=== PATIENT | female | born 1990 | race Caucasian/White ===

== ENCOUNTER 2023-01-06 11:28 | Emergency (ER) | payer OTHER, SELFPAY ==
[2023-01-06 11:38] VITALS: BP 145/93; PULSE 86; RESP 19; TEMP 36.6; O2SAT 98; BMI 39.8
--- NOTE | 2023-01-06 11:39 | ED.PSYCH ---
HPI - Psych General Chief Complaint: Psychiatric Symptoms <DWIGHT Garcia - Last Filed: 01/06/23 11:44> Stated Complaint: crisis <DWIGHT Garcia - Last Filed: 01/06/23 11:44> Time Seen by Provider: 01/06/23 12:42 <DWIGHT Garcia - Last Filed: 01/06/23 11:44> Source: patient <DWIGHT Amor - Last Filed: 01/06/23 18:24> Mode of arrival: ambulatory <DWIGHT Amor - Last Filed: 01/06/23 18:24> Limitations: no limitations <DWIGHT Amor Last Filed: 01/06/23 18:24> History of Present Illness HPI Narrative: 32yoF with a PMHx of anxiety, depression, OCD and OCPD who self cuts and has had suicidal attempts in the past who is presenting to the ER with complaints of increased paranoia and thoughts over the past 3 weeks. Reports that she normally can be talked out of what she believes although this has not been happening lately despite taking her medications as prescribed. She reports that she did leave a no in the past to attempt SI although does not feel like she wants to harm herself today. Although over the weekend she did drink some alcohol and she mixer Ativan with the alcohol which she knows she is not supposed to she reports. She admits the self injury cuts to forearms as well over the weekend she spoke to her PCP who is the PA and they were concerned and they told her that she should come here for further evaluation treatment. Patient denies any SI or plan at this time, HI, auditory visualization and she does not want to self injure herself anymore. Reports that she lives at home alone. Denies any drug usage. Reports that she does not drink daily. She denies any fevers, chills, nausea or vomiting, chest pain or shortness of breath, abdominal pain, diarrhea or any other symptoms complaints or concerns at this time. <DWIGHT Amor Last Filed: 01/06/23 18:24> MD complaint: feels depressed, anxiety and other (Increased OCD/OCPD symptoms) <DWIGHT Amor Last Filed: 01/06/23 18:24> Onset (ago): week(s) (3) <DWIGHT Amor - Last Filed: 01/06/23 18:24> Duration: getting worse <DWIGHT Amor - Last Filed: 01/06/23 18:24> History of same: Yes <DWIGHT Amor - Last Filed: 01/06/23 18:24> Relieving factors: none <DWIGHT Amor - Last Filed: 01/06/23 18:24> Exacerbating factors: none <DWIGHT Amor - Last Filed: 01/06/23 18:24> Context: recent alcohol abuse <DWIGHT Amor - Last Filed: 01/06/23 18:24> Associated psychiatric symptoms: depression and racing thoughts <DWIGHT Amor - Last Filed: 01/06/23 18:24> Associated symptoms: denies other symptoms <DWIGHT Amor - Last Filed: 01/06/23 18:24> Treatments prior to arrival: none <DWIGHT Amor - Last Filed: 01/06/23 18:24> If self harm: self-inflicted trauma <DWIGHT Amor - Last Filed: 01/06/23 18:24> Related Data Home Medications: Home Medications Medication Instructions Recorded Confirmed fluoxetine 20 mg capsule 1 cap PO DAILY 01/06/23 01/06/23 hydroxyzine HCl 25 mg tablet 1 tab PO DAILY PRN anxiety 01/06/23 01/06/23 levonorgestrel-ethinyl estradiol 1 tab PO DAILY 01/06/23 01/06/23 0.1 mg-20 mcg tablet (Vienva) lorazepam 0.5 mg tablet 1 tab PO DAILY PRN anxiety 01/06/23 01/06/23 olanzapine 2.5 mg tablet 1 tab PO BID 01/06/23 01/06/23 <DWIGHT Garcia - Last Filed: 01/06/23 11:44> Allergies/Adverse Reactions: Allergies Allergy/AdvReac Type Severity Reaction Status Date / Time azithromycin [From ZITHROMAX] Allergy Intermediate HIVES Unverified 07/06/20 19:27 sulfamethoxazole Allergy Intermediate HIVES Unverified 07/06/20 19:27 [From BACTRIM] trimethoprim [From BACTRIM] Allergy Intermediate HIVES Unverified 07/06/20 19:27 FRUIT,FRESH Allergy Intermediate MOUTH Uncoded 07/06/20 19:27 ITCHING bactrum Allergy Unknown Uncoded 02/06/18 00:00 <DWIGHT Garcia - Last Filed: 01/06/23 11:44> Review of Systems Review of Systems: Constitutional : No Fever, No Chills ENT/Mouth : No Ear Pain, No Nasal Congestion, No sore throat Eyes: No Eye Pain, No Swelling, No Redness Cardiovascular : No Chest Pain, No SOB Respiratory : No Cough, No Sputum, No Dyspnea Gastrointestinal : No ingestions, No Nausea, No Vomiting, No Diarrhea, No Hematochezia, No Melena Genitourinary : No Dysuria, No Urinary Frequency, No Hematuria Musculoskeletal : No Myalgias Skin : No Skin Lesions, No rash Neuro : No Weakness, No Numbness, No Paresthesias, No Dizziness, No Headache Psych : + Anxiety, + Depression, No SI, + No thoughts of self injury, No HI, No AVH, Heme/Lymph: No Lymphadenopathy Endocrine : No Polyuria, No Polydipsia <DWIGHT Amor - Last Filed: 01/06/23 18:24> Yes all other systems are reviewed and are negative <DWIGHT Amor - Last Filed: 01/06/23 18:24> FOR[facility]LY [facility] Past Medical History Attestation statement: The following information was validated with the patient. <DWIGHT Amor - Last Filed: 01/06/23 18:24> Source: old records reviewed and nursing notes reviewed <DWIGHT Amor - Last Filed: 01/06/23 18:24> Social History Social History: Social History Advance Directives: No Advance Directives Information Provided: Yes Healthcare Proxy: No Guardian: No <DWIGHT Garcia - Last Filed: 01/06/23 11:44> Physical Exam Vital Signs: Vital Signs: Last Vital Signs Temp 97.9 F 01/07/23 10:40 Pulse 74 01/07/23 10:40 Resp 16 01/07/23 10:40 BP 124/74 01/07/23 10:40 Pulse Ox 96 01/07/23 10:40 O2 Del Method 01/07/23 10:40 BMI result Body Mass Index 39.8 <DWIGHT Garcia - Last Filed: 01/06/23 11:44> Vital Signs: Last Vital Signs Temp 97.9 F 01/07/23 10:40 Pulse 74 01/07/23 10:40 Resp 16 01/07/23 10:40 BP 124/74 01/07/23 10:40 Pulse Ox 96 01/07/23 10:40 O2 Del Method 01/07/23 10:40 BMI result Body Mass Index 39.8 vital signs have been reviewed as normal and appeared to be correct. Blood pressure 145/93 Heart rate normal. Respiration rate normal. Temperature normal. Oxygen saturation normal. <DWIGHT Amor - Last Filed: 01/06/23 18:24> Vital Signs: Last Vital Signs Temp 97.9 F 01/07/23 10:40 Pulse 74 01/07/23 10:40 Resp 16 01/07/23 10:40 BP 124/74 01/07/23 10:40 Pulse Ox 96 01/07/23 10:40 O2 Del Method 01/07/23 10:40 BMI result Body Mass Index 39.8 <Edward Singh MD - Last Filed: 01/07/23 11:13> Appearance: Alert. Oriented X3. No acute distress. Head: Normal external exam. Normocephalic. Atraumatic. No Diaz signs noted. No raccoon eyes noted Eyes: PERRLA. EOMI. Conjunctiva and sclera normal. Eyelids normal. ENT: EAC normal. TM's Normal. Pharynx normal. Uvula midline. Moist mucous membranes. No trismus noted. No drooling noted. No muffled voice noted. Neck: Normal inspection. Neck supple. FROM. No adenopathy. Thyroid Normal. No meningeal signs. No neck mass noted. CVS: Normal heart rate and rhythm. Heart sound normal. No murmurs noted. Pulses normal throughout. Respiratory: No respiratory distress. Painless inspiration. Breath sounds normal. No wheezes/rales/rhonchi noted. Chest nontender. No accessory muscle usage noted or decreased air movement noted. Abdomen: Soft and nontender. Bowel sounds normal in all 4 quadrants. No distention noted. No organomegaly noted. No visible injury noted. Back: No CVA tenderness. Full range of motion noted. Skin: Skin warm and dry. Normal skin color. Normal skin turgor. Patient noted to have superficial self-injury torres to left forearm no signs of infection. No additional rashes/lesions/lacerations noted. Extremities: No lower extremity edema. Extremities exhibit normal range of motion. Extremities nontender. Neuro: Oriented X 3. No motor deficit. No sensory deficit. Reflexes normal. CN's II-XII intact bilaterally? Psych: Appearance grossly normal, well-kept, mental status normal, speech and movement normal, speech clear, patient appears very sad and anxious along with depressed. Is cooperative. Normal thought process. Normal thought content. Normal good insight. Judgment good. <DWIGHT Amor - Last Filed: 01/06/23 18:24> Course Course Course Narrative: This is an RME: Additional HPI, ROS, PE not included below will be deferred to primary provider. 32 year old female presents with complaints of OCPD, and suicidal ideations w/ plan to cut ( last cute two days ago L forearm). Presents w/ deteriorating mental health, she states she was told to come in by her is puncture, she used to have OCD in the told her that she has OCPD. Vague SI. No HI. Denies visual, auditory and tactile hallucinations. Denies drugs, alcohol tobacco. Will go to the behavioral pod Plan- med clearance. <DWIGHT Garcia - Last Filed: 01/06/23 11:44> Reevaluation(s) Reevaluation #1: This patient presents with symptoms consistent with an underlying psychiatric disorder, most likely anxiety/depression/OCD/OCPD exacerbation. Presentation not consistent with acute organic causes to include delirium, dementia or drug induced disorders (acute ingestions or withdrawal; no evidence of toxidrome). Given the H&P, I suspect this patient may be suicidal although NOT homicidal/gravely disabled. She may or may not require psychiatric care. Will obtain labs, EKG, COVID swab, UA, drugs of abuse screen and re-evaluate. <DWIGHT Amor - Last Filed: 01/06/23 18:24> Time: 13:15 <DWIGHT Amor - Last Filed: 01/06/23 18:24> Reevaluation #2: Labs reviewed patient's carbon dioxide 20. Otherwise all other labs are within normal limits. UA revealed moderate amount of leukocytes although negative nitrates. Patient reports she was treated for UTI few weeks ago with Macrobid she is not having any symptoms. Although will start on Cefotan for possible UTI. Otherwise patient negative for all drugs. ETOH level negative. Negative for acetaminophen and salicylates. Negative for COVID. Therefore at this time patient medically cleared and placed in Physician observation because the patient needs more time to be evaluated by care team for possible inpatient psychiatric rehabilitation versus outpatient. Will continue to monitor. <DWIGHT Amor - Last Filed: 01/06/23 18:24> Time: 13:59 <DWIGHT Amor - Last Filed: 01/06/23 18:24> Reevaluation #3: Patient to go to respite will dc home <Edward Singh MD - Last Filed: 01/07/23 11:13> Time: 11:12 <Edward Singh MD - Last Filed: 01/07/23 11:13> Medications Administered Generic Name Dose Route Start Last Admin Trade Name Freq PRN Reason Stop Dose Admin Cefuroxime Axetil 250 mg 01/06/23 14:15 01/07/23 09:01 Cefuroxime Axetil 250 Mg Tablet PO 01/13/23 14:14 250 mg BID KENYON Administration Fluoxetine HCl 20 mg 01/07/23 09:00 01/07/23 09:01 Fluoxetine Hcl 20 Mg Capsule PO 20 mg DAILY KENYON Administration Olanzapine 2.5 mg 01/06/23 21:00 01/07/23 09:01 Olanzapine 2.5 Mg Tablet PO 2.5 mg BID KENYON Administration <DWIGHT Garcia - Last Filed: 01/06/23 11:44> Medications Administered Generic Name Dose Route Start Last Admin Trade Name Freq PRN Reason Stop Dose Admin Cefuroxime Axetil 250 mg 01/06/23 14:15 01/07/23 09:01 Cefuroxime Axetil 250 Mg Tablet PO 01/13/23 14:14 250 mg BID KENYON Administration Fluoxetine HCl 20 mg 01/07/23 09:00 01/07/23 09:01 Fluoxetine Hcl 20 Mg Capsule PO 20 mg DAILY KENYON Administration Olanzapine 2.5 mg 01/06/23 21:00 01/07/23 09:01 Olanzapine 2.5 Mg Tablet PO 2.5 mg BID KENYON Administration <DWIGHT Amor - Last Filed: 01/06/23 18:24> Medications Administered Generic Name Dose Route Start Last Admin Trade Name Patrick PRN Reason Stop Dose Admin Cefuroxime Axetil 250 mg 01/06/23 14:15 01/07/23 09:01 Cefuroxime Axetil 250 Mg Tablet PO 01/13/23 14:14 250 mg BID KENYON Administration Fluoxetine HCl 20 mg 01/07/23 09:00 01/07/23 09:01 Fluoxetine Hcl 20 Mg Capsule PO 20 mg DAILY KENYON Administration Olanzapine 2.5 mg 01/06/23 21:00 01/07/23 09:01 Olanzapine 2.5 Mg Tablet PO 2.5 mg BID KENYON Administration <Edward Singh MD - Last Filed: 01/07/23 11:13> Medical Decision Making Lab Data MDM Lab Attestation statement: I reviewed the patient's lab results. <DWIGHT Amor - Last Filed: 01/06/23 18:24> Result Diagrams: 01/06/23 12:08 01/06/23 12:08 <DWIGHT Garcia - Last Filed: 01/06/23 11:44> Labs: Lab Results 01/06/23 01/06/23 01/06/23 Range/Units 12:08 12:08 12:08 WBC 8.8 (4.8-10.8) X10*3/uL RBC 4.76 (4.20-5.50) X10*6/uL Hgb 13.1 (12.0-16.0) g/dl Hct 40.2 (37.0-47.0) % MCV 84.5 (80.0-98.0) fL MCH 27.5 (27.0-33.0) pg MCHC 32.6 (31.0-35.0) g/dl RDW 13.1 (11.0-16.0) % Plt Count 337 (160-400) X10*3/uL MPV 9.3 L (9.4-12.3) fL Immature Gran % (Auto) 0.5 H (0.0-0.4) % Neut % (Auto) 56.4 (45-73) % Lymph % (Auto) 36.3 (20-40) % [place] % (Auto) 5.2 (2-11) % Eos % (Auto) 1.3 (0-4) % Baso % (Auto) 0.3 (0-2) % Lymph # (Auto) 3.2 (1.2-4.9) X10*3/uL [place] # (Auto) 0.5 (0.1-1.2) X10*3/uL Eos # (Auto) 0.1 (0.0-0.4) X10*3/uL Baso # (Auto) 0.0 (0.0-0.2) X10*3/uL Abs Immat Gran (auto) 0.04 H (0.00-0.03) X10*3/uL Absolute Neuts (auto) 5.0 (2.0-8.3) x10*3/uL Absolute Nucleated RBC 0.000 (0.0-0.012) X10*3/uL Nucleated RBC % (auto) 0.0 (0.0-0.2) /100WBC Sodium 140 (135-145) mmol/L Potassium 4.2 (3.3-5.1) mmol/L Chloride 108 (96-108) mmol/L Carbon Dioxide 20 L (22-29) mmol/L Anion Gap 16 (12-20) BUN 11 (9-16) mg/dL Creatinine 0.79 (0.5-1.4) mg/dL Estim Creat Clear Calc 116.5 Estimated GFR > 60 Random Glucose 99 (60-115) mg/dL Calcium 9.3 (8.4-10.2) mg/dL Magnesium 2.0 (1.6-2.6) mg/dL Total Bilirubin 0.5 (0.0-1.0) mg/dL AST 16 (5-31) U/L ALT 20 (0-31) U/L Alkaline Phosphatase 81 (39-117) U/L Total Protein 6.7 (6.5-8.0) g/dL Albumin 4.3 (3.5-5.0) g/dL Urine Color Urine Appearance Urine pH (5.0-9.0) Ur Specific [place] (1.005-1.025) Urine Protein (Neg-Trace) mg/dL Urine Glucose (UA) (Negative) mg/dL Urine Ketones (Negative) mg/dL Urine Blood (Negative) Urine Nitrite (Negative) Ur Leukocyte Esterase (Negative) Urine RBC (0-2) /HPF Urine WBC (0-5) /HPF Ur Squamous Epith Cells (0-2) /HPF Urine Bacteria (None Seen) Hyaline Casts (0-2) /LPF Salicylates < 5.0 L (15-30) mg/dL Urine Opiates Screen (Not Detect) Urine Fentanyl Screen (Not Detect) Acetaminophen < 17 (<30) mcg/mL Ur Barbiturates Screen (Not Detect) Ur Phencyclidine Scrn (Not Detect) Ur Amphetamines Screen (Not Detect) U Benzodiazepines Scrn (Not Detect) Urine Cocaine Screen (Not Detect) U Marijuana (THC) Screen (Not Detect) Ethyl Alcohol < 10 mg/dL COVID-19 ([facility]) Negative (Negative) COVID-19 Clin Com See Note 01/06/23 01/06/23 Range/Units 12:08 12:08 WBC (4.8-10.8) X10*3/uL RBC (4.20-5.50) X10*6/uL Hgb (12.0-16.0) g/dl Hct (37.0-47.0) % MCV (80.0-98.0) fL MCH (27.0-33.0) pg MCHC (31.0-35.0) g/dl RDW (11.0-16.0) % Plt Count (160-400) X10*3/uL MPV (9.4-12.3) fL Immature Gran % (Auto) (0.0-0.4) % Neut % (Auto) (45-73) % Lymph % (Auto) (20-40) % [place] % (Auto) (2-11) % Eos % (Auto) (0-4) % Baso % (Auto) (0-2) % Lymph # (Auto) (1.2-4.9) X10*3/uL [place] # (Auto) (0.1-1.2) X10*3/uL Eos # (Auto) (0.0-0.4) X10*3/uL Baso # (Auto) (0.0-0.2) X10*3/uL Abs Immat Gran (auto) (0.00-0.03) X10*3/uL Absolute Neuts (auto) (2.0-8.3) x10*3/uL Absolute Nucleated RBC (0.0-0.012) X10*3/uL Nucleated RBC % (auto) (0.0-0.2) /100WBC Sodium (135-145) mmol/L Potassium (3.3-5.1) mmol/L Chloride (96-108) mmol/L Carbon Dioxide (22-29) mmol/L Anion Gap (12-20) BUN (9-16) mg/dL Creatinine (0.5-1.4) mg/dL Estim Creat Clear Calc Estimated GFR Random Glucose (60-115) mg/dL Calcium (8.4-10.2) mg/dL Magnesium (1.6-2.6) mg/dL Total Bilirubin (0.0-1.0) mg/dL AST (5-31) U/L ALT (0-31) U/L Alkaline Phosphatase (39-117) U/L Total Protein (6.5-8.0) g/dL Albumin (3.5-5.0) g/dL Urine Color Yellow Urine Appearance Cloudy Urine pH 6.0 (5.0-9.0) Ur Specific [place] 1.025 (1.005-1.025) Urine Protein Negative (Neg-Trace) mg/dL Urine Glucose (UA) Negative (Negative) mg/dL Urine Ketones Negative (Negative) mg/dL Urine Blood Negative (Negative) Urine Nitrite Negative (Negative) Ur Leukocyte Esterase Moderate (2+) H (Negative) Urine RBC 0-2 (0-2) /HPF Urine WBC 21-50 H (0-5) /HPF Ur Squamous Epith Cells 11-20 (0-2) /HPF Urine Bacteria 2+ (None Seen) Hyaline Casts 0-2 (0-2) /LPF Salicylates (15-30) mg/dL Urine Opiates Screen Not Detected (Not Detect) Urine Fentanyl Screen Not Detected (Not Detect) Acetaminophen (<30) mcg/mL Ur Barbiturates Screen Not Detected (Not Detect) Ur Phencyclidine Scrn Not Detected (Not Detect) Ur Amphetamines Screen Not Detected (Not Detect) U Benzodiazepines Scrn Not Detected (Not Detect) Urine Cocaine Screen Not Detected (Not Detect) U Marijuana (THC) Screen Not Detected (Not Detect) Ethyl Alcohol mg/dL COVID-19 ([facility]) (Negative) COVID-19 Clin Com <DWIGHT Garcia - Last Filed: 01/06/23 11:44> Lab Results 01/06/23 01/06/23 01/06/23 Range/Units 12:08 12:08 12:08 WBC 8.8 (4.8-10.8) X10*3/uL RBC 4.76 (4.20-5.50) X10*6/uL Hgb 13.1 (12.0-16.0) g/dl Hct 40.2 (37.0-47.0) % MCV 84.5 (80.0-98.0) fL MCH 27.5 (27.0-33.0) pg MCHC 32.6 (31.0-35.0) g/dl RDW 13.1 (11.0-16.0) % Plt Count 337 (160-400) X10*3/uL MPV 9.3 L (9.4-12.3) fL Immature Gran % (Auto) 0.5 H (0.0-0.4) % Neut % (Auto) 56.4 (45-73) % Lymph % (Auto) 36.3 (20-40) % [place] % (Auto) 5.2 (2-11) % Eos % (Auto) 1.3 (0-4) % Baso % (Auto) 0.3 (0-2) % Lymph # (Auto) 3.2 (1.2-4.9) X10*3/uL [place] # (Auto) 0.5 (0.1-1.2) X10*3/uL Eos # (Auto) 0.1 (0.0-0.4) X10*3/uL Baso # (Auto) 0.0 (0.0-0.2) X10*3/uL Abs Immat Gran (auto) 0.04 H (0.00-0.03) X10*3/uL Absolute Neuts (auto) 5.0 (2.0-8.3) x10*3/uL Absolute Nucleated RBC 0.000 (0.0-0.012) X10*3/uL Nucleated RBC % (auto) 0.0 (0.0-0.2) /100WBC Sodium 140 (135-145) mmol/L Potassium 4.2 (3.3-5.1) mmol/L Chloride 108 (96-108) mmol/L Carbon Dioxide 20 L (22-29) mmol/L Anion Gap 16 (12-20) BUN 11 (9-16) mg/dL Creatinine 0.79 (0.5-1.4) mg/dL Estim Creat Clear Calc 116.5 Estimated GFR > 60 Random Glucose 99 (60-115) mg/dL Calcium 9.3 (8.4-10.2) mg/dL Magnesium 2.0 (1.6-2.6) mg/dL Total Bilirubin 0.5 (0.0-1.0) mg/dL AST 16 (5-31) U/L ALT 20 (0-31) U/L Alkaline Phosphatase 81 (39-117) U/L Total Protein 6.7 (6.5-8.0) g/dL Albumin 4.3 (3.5-5.0) g/dL Urine Color Urine Appearance Urine pH (5.0-9.0) Ur Specific [place] (1.005-1.025) Urine Protein (Neg-Trace) mg/dL Urine Glucose (UA) (Negative) mg/dL Urine Ketones (Negative) mg/dL Urine Blood (Negative) Urine Nitrite (Negative) Ur Leukocyte Esterase (Negative) Urine RBC (0-2) /HPF Urine WBC (0-5) /HPF Ur Squamous Epith Cells (0-2) /HPF Urine Bacteria (None Seen) Hyaline Casts (0-2) /LPF Salicylates < 5.0 L (15-30) mg/dL Urine Opiates Screen (Not Detect) Urine Fentanyl Screen (Not Detect) Acetaminophen < 17 (<30) mcg/mL Ur Barbiturates Screen (Not Detect) Ur Phencyclidine Scrn (Not Detect) Ur Amphetamines Screen (Not Detect) U Benzodiazepines Scrn (Not Detect) Urine Cocaine Screen (Not Detect) U Marijuana (THC) Screen (Not Detect) Ethyl Alcohol < 10 mg/dL COVID-19 ([facility]) Negative (Negative) COVID-19 Clin Com See Note 01/06/23 01/06/23 Range/Units 12:08 12:08 WBC (4.8-10.8) X10*3/uL RBC (4.20-5.50) X10*6/uL Hgb (12.0-16.0) g/dl Hct (37.0-47.0) % MCV (80.0-98.0) fL MCH (27.0-33.0) pg MCHC (31.0-35.0) g/dl RDW (11.0-16.0) % Plt Count (160-400) X10*3/uL MPV (9.4-12.3) fL Immature Gran % (Auto) (0.0-0.4) % Neut % (Auto) (45-73) % Lymph % (Auto) (20-40) % [place] % (Auto) (2-11) % Eos % (Auto) (0-4) % Baso % (Auto) (0-2) % Lymph # (Auto) (1.2-4.9) X10*3/uL [place] # (Auto) (0.1-1.2) X10*3/uL Eos # (Auto) (0.0-0.4) X10*3/uL Baso # (Auto) (0.0-0.2) X10*3/uL Abs Immat Gran (auto) (0.00-0.03) X10*3/uL Absolute Neuts (auto) (2.0-8.3) x10*3/uL Absolute Nucleated RBC (0.0-0.012) X10*3/uL Nucleated RBC % (auto) (0.0-0.2) /100WBC Sodium (135-145) mmol/L Potassium (3.3-5.1) mmol/L Chloride (96-108) mmol/L Carbon Dioxide (22-29) mmol/L Anion Gap (12-20) BUN (9-16) mg/dL Creatinine (0.5-1.4) mg/dL Estim Creat Clear Calc Estimated GFR Random Glucose (60-115) mg/dL Calcium (8.4-10.2) mg/dL Magnesium (1.6-2.6) mg/dL Total Bilirubin (0.0-1.0) mg/dL AST (5-31) U/L ALT (0-31) U/L Alkaline Phosphatase (39-117) U/L Total Protein (6.5-8.0) g/dL Albumin (3.5-5.0) g/dL Urine Color Yellow Urine Appearance Cloudy Urine pH 6.0 (5.0-9.0) Ur Specific [place] 1.025 (1.005-1.025) Urine Protein Negative (Neg-Trace) mg/dL Urine Glucose (UA) Negative (Negative) mg/dL Urine Ketones Negative (Negative) mg/dL Urine Blood Negative (Negative) Urine Nitrite Negative (Negative) Ur Leukocyte Esterase Moderate (2+) H (Negative) Urine RBC 0-2 (0-2) /HPF Urine WBC 21-50 H (0-5) /HPF Ur Squamous Epith Cells 11-20 (0-2) /HPF Urine Bacteria 2+ (None Seen) Hyaline Casts 0-2 (0-2) /LPF Salicylates (15-30) mg/dL Urine Opiates Screen Not Detected (Not Detect) Urine Fentanyl Screen Not Detected (Not Detect) Acetaminophen (<30) mcg/mL Ur Barbiturates Screen Not Detected (Not Detect) Ur Phencyclidine Scrn Not Detected (Not Detect) Ur Amphetamines Screen Not Detected (Not Detect) U Benzodiazepines Scrn Not Detected (Not Detect) Urine Cocaine Screen Not Detected (Not Detect) U Marijuana (THC) Screen Not Detected (Not Detect) Ethyl Alcohol mg/dL COVID-19 ([facility]) (Negative) COVID-19 Clin Com <DWIGHT Amor - Last Filed: 01/06/23 18:24> Lab Results 01/06/23 01/06/23 01/06/23 Range/Units 12:08 12:08 12:08 WBC 8.8 (4.8-10.8) X10*3/uL RBC 4.76 (4.20-5.50) X10*6/uL Hgb 13.1 (12.0-16.0) g/dl Hct 40.2 (37.0-47.0) % MCV 84.5 (80.0-98.0) fL MCH 27.5 (27.0-33.0) pg MCHC 32.6 (31.0-35.0) g/dl RDW 13.1 (11.0-16.0) % Plt Count 337 (160-400) X10*3/uL MPV 9.3 L (9.4-12.3) fL Immature Gran % (Auto) 0.5 H (0.0-0.4) % Neut % (Auto) 56.4 (45-73) % Lymph % (Auto) 36.3 (20-40) % [place] % (Auto) 5.2 (2-11) % Eos % (Auto) 1.3 (0-4) % Baso % (Auto) 0.3 (0-2) % Lymph # (Auto) 3.2 (1.2-4.9) X10*3/uL [place] # (Auto) 0.5 (0.1-1.2) X10*3/uL Eos # (Auto) 0.1 (0.0-0.4) X10*3/uL Baso # (Auto) 0.0 (0.0-0.2) X10*3/uL Abs Immat Gran (auto) 0.04 H (0.00-0.03) X10*3/uL Absolute Neuts (auto) 5.0 (2.0-8.3) x10*3/uL Absolute Nucleated RBC 0.000 (0.0-0.012) X10*3/uL Nucleated RBC % (auto) 0.0 (0.0-0.2) /100WBC Sodium 140 (135-145) mmol/L Potassium 4.2 (3.3-5.1) mmol/L Chloride 108 (96-108) mmol/L Carbon Dioxide 20 L (22-29) mmol/L Anion Gap 16 (12-20) BUN 11 (9-16) mg/dL Creatinine 0.79 (0.5-1.4) mg/dL Estim Creat Clear Calc 116.5 Estimated GFR > 60 Random Glucose 99 (60-115) mg/dL Calcium 9.3 (8.4-10.2) mg/dL Magnesium 2.0 (1.6-2.6) mg/dL Total Bilirubin 0.5 (0.0-1.0) mg/dL AST 16 (5-31) U/L ALT 20 (0-31) U/L Alkaline Phosphatase 81 (39-117) U/L Total Protein 6.7 (6.5-8.0) g/dL Albumin 4.3 (3.5-5.0) g/dL Urine Color Urine Appearance Urine pH (5.0-9.0) Ur Specific [place] (1.005-1.025) Urine Protein (Neg-Trace) mg/dL Urine Glucose (UA) (Negative) mg/dL Urine Ketones (Negative) mg/dL Urine Blood (Negative) Urine Nitrite (Negative) Ur Leukocyte Esterase (Negative) Urine RBC (0-2) /HPF Urine WBC (0-5) /HPF Ur Squamous Epith Cells (0-2) /HPF Urine Bacteria (None Seen) Hyaline Casts (0-2) /LPF Salicylates < 5.0 L (15-30) mg/dL Urine Opiates Screen (Not Detect) Urine Fentanyl Screen (Not Detect) Acetaminophen < 17 (<30) mcg/mL Ur Barbiturates Screen (Not Detect) Ur Phencyclidine Scrn (Not Detect) Ur Amphetamines Screen (Not Detect) U Benzodiazepines Scrn (Not Detect) Urine Cocaine Screen (Not Detect) U Marijuana (THC) Screen (Not Detect) Ethyl Alcohol < 10 mg/dL COVID-19 ([facility]) Negative (Negative) COVID-19 Clin Com See Note 01/06/23 01/06/23 Range/Units 12:08 12:08 WBC (4.8-10.8) X10*3/uL RBC (4.20-5.50) X10*6/uL Hgb (12.0-16.0) g/dl Hct (37.0-47.0) % MCV (80.0-98.0) fL MCH (27.0-33.0) pg MCHC (31.0-35.0) g/dl RDW (11.0-16.0) % Plt Count (160-400) X10*3/uL MPV (9.4-12.3) fL Immature Gran % (Auto) (0.0-0.4) % Neut % (Auto) (45-73) % Lymph % (Auto) (20-40) % [place] % (Auto) (2-11) % Eos % (Auto) (0-4) % Baso % (Auto) (0-2) % Lymph # (Auto) (1.2-4.9) X10*3/uL [place] # (Auto) (0.1-1.2) X10*3/uL Eos # (Auto) (0.0-0.4) X10*3/uL Baso # (Auto) (0.0-0.2) X10*3/uL Abs Immat Gran (auto) (0.00-0.03) X10*3/uL Absolute Neuts (auto) (2.0-8.3) x10*3/uL Absolute Nucleated RBC (0.0-0.012) X10*3/uL Nucleated RBC % (auto) (0.0-0.2) /100WBC Sodium (135-145) mmol/L Potassium (3.3-5.1) mmol/L Chloride (96-108) mmol/L Carbon Dioxide (22-29) mmol/L Anion Gap (12-20) BUN (9-16) mg/dL Creatinine (0.5-1.4) mg/dL Estim Creat Clear Calc Estimated GFR Random Glucose (60-115) mg/dL Calcium (8.4-10.2) mg/dL Magnesium (1.6-2.6) mg/dL Total Bilirubin (0.0-1.0) mg/dL AST (5-31) U/L ALT (0-31) U/L Alkaline Phosphatase (39-117) U/L Total Protein (6.5-8.0) g/dL Albumin (3.5-5.0) g/dL Urine Color Yellow Urine Appearance Cloudy Urine pH 6.0 (5.0-9.0) Ur Specific [place] 1.025 (1.005-1.025) Urine Protein Negative (Neg-Trace) mg/dL Urine Glucose (UA) Negative (Negative) mg/dL Urine Ketones Negative (Negative) mg/dL Urine Blood Negative (Negative) Urine Nitrite Negative (Negative) Ur Leukocyte Esterase Moderate (2+) H (Negative) Urine RBC 0-2 (0-2) /HPF Urine WBC 21-50 H (0-5) /HPF Ur Squamous Epith Cells 11-20 (0-2) /HPF Urine Bacteria 2+ (None Seen) Hyaline Casts 0-2 (0-2) /LPF Salicylates (15-30) mg/dL Urine Opiates Screen Not Detected (Not Detect) Urine Fentanyl Screen Not Detected (Not Detect) Acetaminophen (<30) mcg/mL Ur Barbiturates Screen Not Detected (Not Detect) Ur Phencyclidine Scrn Not Detected (Not Detect) Ur Amphetamines Screen Not Detected (Not Detect) U Benzodiazepines Scrn Not Detected (Not Detect) Urine Cocaine Screen Not Detected (Not Detect) U Marijuana (THC) Screen Not Detected (Not Detect) Ethyl Alcohol mg/dL COVID-19 ([facility]) (Negative) COVID-19 Clin Com <Edward Singh MD - Last Filed: 01/07/23 11:13> Discharge Plan Discharge Clinical Impression: Depression, Acute anxiety, UTI (urinary tract infection), OCD (obsessive compulsive disorder) <DWIGHT Garcia - Last Filed: 01/06/23 11:44> Patient Disposition: Home, Self-Care <DWIGHT Garcia - Last Filed: 01/06/23 11:44> Instructions: Depression (ED) <DWIGHT Garcia - Last Filed: 01/06/23 11:44> Prescriptions: No Action levonorgestrel-ethinyl estrad [Vienva] 0.1-20 mg-mcg tablet 1 tab PO DAILY olanzapine 2.5 mg tablet 1 tab PO BID hydroxyzine HCl 25 mg tablet 1 tab PO DAILY PRN (Reason: anxiety) fluoxetine 20 mg capsule 1 cap PO DAILY lorazepam 0.5 mg tablet 1 tab PO DAILY PRN (Reason: anxiety) <DWIGHT Garcia - Last Filed: 01/06/23 11:44> Interventions: [place]-Suicide Risk Severity Scale Last Done: 01/07/23 06:08 <DWIGHT Garcia - Last Filed: 01/06/23 11:44>
[2023-01-06 12:22] LABS: MANUAL DIFF FLAG NO
[2023-01-06 12:23] LABS: Basophils Percent Auto 0.3 % (0-2); Eosinophils Absolute Auto 0.1 X10*3/uL (0.0-0.4); Eosinophils Percent Auto 1.3 % (0-4); Hematocrit 40.2 % (37.0-47.0); Hemoglobin 13.1 g/dl (12.0-16.0); Imm Gran Abs Auto 0.04 X10*3/uL (0.00-0.03); Imm Gran Pct Auto 0.5 % (0.0-0.4); Lymphocytes Absolute Auto 3.2 X10*3/uL (1.2-4.9); Lymphocytes Percent Auto 36.3 % (20-40); Mean Corpuscular HGB Conc 32.6 g/dl (31.0-35.0); Mean Corpuscular Hemoglobin 27.5 pg (27.0-33.0); Mean Corpuscular Volume 84.5 fL (80.0-98.0); Mean Platelet Volume 9.3 fL (9.4-12.3); Monocytes Absolute Auto 0.5 X10*3/uL (0.1-1.2); Monocytes Percent Auto 5.2 % (2-11); Neutrophils Percent Auto 56.4 % (45-73); Platelet Count 337 X10*3/uL (160-400); Red Blood Count 4.76 X10*6/uL (4.20-5.50); Red Cell Distribution Width 13.1 % (11.0-16.0); White Blood Count 8.8 X10*3/uL (4.8-10.8)
[2023-01-06 12:27] LABS: Appearance Urine Cloudy; Color Urine Yellow; Glucose Urine UA Negative (Negative); Leukocyte Esterase Urine Moderate (2+) (Negative); Nitrite Urine Negative (Negative); Specific Gravity - Urine 1.025 (1.005-1.025); UMIC TRIGGER UACC YES; Urine Blood Negative (Negative); Urine Ketones Negative (Negative); Urine Protein Negative (Neg-Trace)
[2023-01-06 12:36] LABS: Amphetamine Screen Urine Not Detected (Not Detect); Barbiturates, Urine Not Detected (Not Detect); Benzodiazepines Screen Urine Not Detected (Not Detect); COVID-19 Test Negative (Negative); Cannabinoid Screen Urine Not Detected (Not Detect); Cocaine Screen Urine Not Detected (Not Detect); Fentanyl, urine Not Detected (Not Detect); IDNOW Serial# 6674DD1D; Opiate Screen Urine Not Detected (Not Detect); Phencyclidine Screen Urine Not Detected (Not Detect)
[2023-01-06 12:40] LABS: Bacteria Urine 2+ (None Seen); Hyaline Casts Urine 0-2 /LPF (0-2); RBC Urine 0-2 /HPF (0-2); UACC Culture Trigger YES; WBC Urine 21-50 /HPF (0-5)
[2023-01-06 12:41] LABS: Alanine Aminotransferase 20 U/L (0-31); Albumin Level 4.3 g/dL (3.5-5.0); Alkaline Phosphatase 81 U/L (39-117); Anion Gap 16 (12-20); Aspartate Amino Transferase 16 U/L (5-31); Bilirubin Total 0.5 mg/dL (0.0-1.0); Blood Urea Nitrogen 11 mg/dL (9-16); Calcium 9.3 mg/dL (8.4-10.2); Carbon Dioxide 20 mmol/L (22-29); Chloride 108 mmol/L (96-108); Creatinine Clr Calc Pharmacy 116.5; Estimated Glomerular Filt Rate > 60; Ethanol < 10 mg/dL; Glucose Random 99 mg/dL (60-115); Potassium 4.2 mmol/L (3.3-5.1); Sodium 140 mmol/L (135-145); Total Protein 6.7 g/dL (6.5-8.0)
[2023-01-06 12:55] LABS: Acetaminophen LAB < 17 mcg/mL (<30); Salicylate < 5.0 mg/dL (15-30)
--- NOTE | 2023-01-06 13:26 | PHA.MEDREC ---
Pharmacy Consult ? Medication Reconciliation Pharmacy has completed the medication reconciliation. Pt states aripiprazole, clonidine, and topiramate were all recently discontinued. Pt also is a little unsure of fluoxetine dose. States initially that she thought it was 20 mg but also says she takes 2 per day. She was on 20 mg previously and is now getting 10 mg capsules so if she's taking 2 of those it's still 20 mg daily so that was the dose that was entered.
--- NOTE | 2023-01-06 15:04 | MHC.CARE ---
Patient is a voluntary bed search, in particular for CSU at [facility]/ or [facility].
--- NOTE | 2023-01-06 15:09 | PC.NURSE ---
32 y/o F pw increased obsessive compulsive thoughts, increased anxiety. has been taking her medications as prescribed. pt spoke with her provider who suggested that she come in for an eval. pt is aox3, calm and cooperative, VSS. pt changed over to hospital attire, labs drawn and sent, urine sent, covid sent, awaiting eval
[2023-01-06] MEDS: OLANZapine 2.5 MG TABLET PO (21:20)
[2023-01-06 21:29] VITALS: BP 123/74; PULSE 75; RESP 18; TEMP 36.6; O2SAT 97
--- NOTE | 2023-01-07 06:10 | PC.NURSE ---
Patient slept through the night, no distress observed/reported, behavior non concerning, disposition per care team is either CSS or voluntary inpatient bed search, medication compliant, VSS, will continue to monitor.
[2023-01-07 06:28] VITALS: BP 121/77; PULSE 81; RESP 17; TEMP 36.8; O2SAT 98
--- NOTE | 2023-01-07 07:25 | PC.NURSE ---
patient appears to remain at rest at present respirations are even and unlabored patient appears in no distress.
--- NOTE | 2023-01-07 08:11 | MHC.CARE ---
RUBIA Alexandre [phone] requesting CB re: patient presentation
[2023-01-07] MEDS: OLANZapine 2.5 MG TABLET PO (09:01)
[2023-01-07] MEDS: FLUoxetine HCl 20 MG CAPSULE PO (09:01)
[2023-01-07 10:40] VITALS: BP 124/74; PULSE 74; RESP 16; TEMP 36.6; O2SAT 96
== END 2023-01-07 12:41 | disposition home or self-care (01) ==
PROVIDERS: Physician Assistant; Emergency Provider Emergency Medicine
DX: F32.A Depression, unspecified (principal); F41.8 Other specified anxiety disorders; N39.0 Urinary tract infection, site not specified; F42.9 Obsessive-compulsive disorder, unspecified; F22 Delusional disorders; Z20.822 Contact with and (suspected) exposure to COVID-19; Z79.899 Other long term (current) drug therapy
CPT/HCPCS: 80053; 80143; 80179; 80307; 81001; 82077; 83735; 85025; 87086; 87635; 99284; S9485

== ENCOUNTER 2023-02-07 11:45 | Outpatient (RCR) | payer OTHER, SELFPAY ==
[2023-01-24 12:21] VITALS: BP 90/58; PULSE 68; TEMP 37.4
[2023-01-24 12:26] VITALS: BMI 40.7
--- NOTE | 2023-01-24 13:10 | PC.ADMIT ---
Patient is a 32 year old female who was referred to [facility] by her prescriber d/t increased sxs of depression with SI with plan to self harm, anxiety, OCD and recently reports being dx with OCPD. Patient recently went to the ER d/t symptoms and went to [facility] for four days. Patient reports history of self harming behavior by cutting her L arm superficially, last time she cut was last week. Patient is alert and oriented x4. Calm and cooperative. Presented with depressed mood, anxious affect. Reports having SI In the last week and a half, denied at present. Denied plan or intent to kill herself. Mom and dad supportive. I always call my mom . Patient stated, I have OCD for a long time and found out I have OCPD recently. Last month and a half have been miserable as I have bad panic and can't let go of obsessing over things Patient has plans over the weekend including spending time with family. Patient given a copy of her safety plan if needed and I reviewed her safety plan with her. Medications reconciled with patient and patient's phamacy. She stated she is taking her medications as prescribed and while at [facility] she stated Prozac was increased to 60 mg daily.
--- NOTE | 2023-01-25 10:58 | HO.PS.ADMBH ---
[facility] Date of Service: 01/24/23 Chief Complaint: OCD Sources of Information: patient interviewed, chart reviewed and crisis/core team assessment reviewed HPI Medical Problems Affecting Mental Status: No Narrative: Patient is a 32-year-old single female, referred to partial hospitalization program through her psychiatric prescriber. Has been working with current provider for several months. History of depression, anxiety, OCD, 0CPD. Has had suicidal ideation with a plan to harm herself by cutting. She spent 1 night in the ED recently, followed by 4 days at [facility], [facility]. She reports this was helpful. Continues with intrusive thoughts, states they are not logical, excessive worry. Endorses increased symptoms of depression and anxiety over the past month and half, including feeling hopeless and helpless at times, anhedonia, disrupted sleep, decreased appetite with some binge eating at times. Also reports difficulty with focusing concentration, continues with passive SI, no intent or plan. She does engage in self-injurious behavior by cutting her forearms with a razor, states she has done this for the past 7-8 years. 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 Lives by herself. Currently on medical leave. Reports that she has been experiencing panic episodes over the past month and a half, although she has experienced symptoms since childhood. Began seeing a therapist as a sophomore in college for anxiety and depression. Denies any episodes of aida/hypomania, but states she possibly could have episodes of hypomania on her past, and she is exploring this with her outpatient providers. She is looking forward to participating in partial program, as she looks forward to the structure, coping skills. Past Psychiatric History: Medication trials: Zoloft, Seroquel, Wellbutrin, risperidone, Abilify, Effexor, BuSpar, Topamax, clomipramine, Rexulti, Vraylar Started therapy as sophmore in college. Has current outpatient providers, BLAYNE Vitale, Mary Ann Alexandre LM, therapist No history inpatient/PHP. Medical Evaluation Reviewed: Yes [facility] Medical History Pre-diabetes Surgical History S/P cholecystectomy Family History: Mother: OCD Grandmother, great Grandmother: OCD maternal grandfather alcohol abuse Social History: Raised by both parents, has 1 older brother. Graduated high school, college. Works as a reference librarian. Currently not in a relationship. Owns own home, lives with her two dogs. Describes parents as supportive. Substance History: None Trauma History: None Diagnostics Vital Signs (24Hr): Vital Signs - 24 hr 01/24/23 12:21 Temperature 99.3 F Pulse Rate 68 Blood Pressure 90/58 L BMI result Body Mass Index 40.7 Meds/Allergies Meds Home Medications Medication Instructions Recorded Confirmed Type fluoxetine 20 mg capsule 60 cap PO DAILY 01/06/23 01/24/23 History hydroxyzine HCl 25 mg tablet 1 tab PO DAILY PRN anxiety 01/06/23 01/24/23 History levonorgestrel-ethinyl estradiol 1 tab PO DAILY 01/06/23 01/24/23 History 0.1 mg-20 mcg tablet (Vienva) lorazepam 0.5 mg tablet 1 tab PO DAILY PRN anxiety 01/06/23 01/24/23 History clonidine HCl 0.1 mg tablet 0.1 mg PO BID PRN Anxiety 01/24/23 01/24/23 History lamotrigine 25 mg tablet 25 mg PO BEDTIME 01/24/23 01/24/23 History olanzapine 5 mg tablet 5 mg PO BID 01/24/23 01/24/23 History omeprazole 20 mg capsule,delayed 20 mg PO DAILY 01/24/23 01/24/23 History release Allergies Allergies Allergy/AdvReac Type Severity Reaction Status Date / Time azithromycin [From ZITHROMAX] Allergy Intermediate HIVES Unverified 07/06/20 19:27 sulfamethoxazole Allergy Intermediate HIVES Unverified 07/06/20 19:27 [From BACTRIM] trimethoprim [From BACTRIM] Allergy Intermediate HIVES Unverified 07/06/20 19:27 FRUIT,FRESH Allergy Intermediate MOUTH Uncoded 07/06/20 19:27 ITCHING bactrum Allergy Unknown Uncoded 02/06/18 00:00 Mental Status Exam Mental Status Exam Narrative: Well-developed, overweight female, in NAD. Appears stated age. No abnormal movements, no perceptual disturbances. Patient Appearance: Well Grooomed Patient Orientation: Person, Place, Time and Situation Level of Consciousness: Appropriate Patient Behavior: Appropriate, Cooperative and Good Eye Contact Mood Description: Depressed and Anxious Affect Description: Depressed and Anxious Patient Cognition Impaired: No Ability to Follow Directions: Excellent Speech Pattern: Clear Memory Description: Intact Hallucinations: None Delusions: Not Present Thought Process: Intact and Rumination Thought Content: positive for Intact, positive for Obsessional Thoughts, positive for Perseveration and positive for Suicidal Ideation (Intermittent passive at times, no intent or plan) Depressive Symptoms: Increased Anxiety, Difficulty Sleeping, Changes in Appetite (Alternates between poor appetite and binge eating.), Loss of Int. in Activity, Hopelessness, Isolating-Friends/Family, Unhappiness, Increased Fatigue, Thoughts of /Suicide and Loss of Energy Judgement: Fair Assessment & Plan Assessment & Plan (1) Major depressive disorder, recurrent severe without psychotic features: Status: Acute Code(s): F33.2 - Major depressive disorder, recurrent severe without psychotic features Assessment and Plan: Patient with history major depressive disorder, OCD, ROCHELLE. First sought treatment as a sophomore in college. Recently presented to emergency department with increased symptoms of anxiety and depression, panic, intent to self-harm. Was admitted to respite for 4 days. Has been referred to this program by her outpatient provider. Found respite helpful. Currently endorses symptoms including feeling hopeless and helpless at times, anhedonia, disrupted sleep, alternating between poor appetite in binge eating. Has had problems with concentration and focus, continues with passive SI, fleeting, without a plan or intent. She feels safe at this time. She does engage in self-injurious behavior by cutting arms. Patient has strong family history of anxiety and OCD, her mother, grandmother, and great grandmother have been diagnosed with this. She has had multiple medication trials in the past. Recently her provider has suggested a possibility of bipolar disorder. She was recently started with lamotrigine 1.5 weeks ago. We reviewed her current medications in detail. She currently receives fluoxetine 60 mg daily, hydroxyzine, clonidine, olanzapine, lorazepam, lamotrigine. She is satisfied with this current medication regimen, and would prefer to focus on skills and structure of groups while here. (2) Generalized anxiety disorder: Status: Acute Code(s): F41.1 - Generalized anxiety disorder (3) Obsessive-compulsive personality disorder: Status: Acute Code(s): F60.5 - Obsessive-compulsive personality disorder (4) OCD (obsessive compulsive disorder): Status: Inactive Code(s): F42.9 - Obsessive-compulsive disorder, unspecified Plan 1. Continue with current [facility] plan of care. 2. Continue with medications as prescribed by outpatient provider. 3. Follow-up as per protocol. Patient educated on: diagnosis, medication risk/benefits and therapeutic strategies Informed Consent: understands Reason for continued partial hosp. stay Substantial Risk for: harm to self, inability to function, rapid decompensation and med/psych decompensation Certification I certify that partial hospital treatment is medically necessary due to the symptoms and problems resulting from the patient's mental illness and the failure to treat the patient at the partial hospital level of care would likely result in the patient requiring inpatient psychiatric care which could not be prevented at a less intensive level of care. Time Spent With Patient Time: Total time managing care of this patient today _60___ minutes.
--- NOTE | 2023-01-31 08:17 | HO.PHP ---
The clients case was reviewed and opened in treatment team
--- NOTE | 2023-01-31 12:09 | HO.PHPPROGNO ---
Subjective Subjective Date of Service: 01/31/23 Reason For Visit: OCD Medical Problems Affecting Mental Status: No Interim History: Less anxious, less depressed. Has begun dose increase of lamotrigine today. Practicing tools learned in program, as well as once she has learned in therapy. Finding program helpful. No SI reported, no safety concerns. Medication Compliance: Yes Side effects from medications: No Attending Groups: Yes Review of Systems Acute medical concerns: No Review of Systems Review of Systems Yes all other systems are reviewed and are negative Constitutional: Reports no additional constitutional complaints Mental Status Exam Mental Status Exam Narrative: NAD Patient Appearance: Well Grooomed Patient Orientation: Person, Place, Time and Situation Level of Consciousness: Appropriate Patient Behavior: Appropriate, Cooperative and Good Eye Contact Mood Description: Depressed and Anxious Affect Description: Depressed and Anxious Patient Cognition Impaired: No Ability to Follow Directions: Excellent Speech Pattern: Clear Memory Description: Intact Hallucinations: None Delusions: Not Present Thought Process: Intact and Rumination (Reports lessening) Thought Content: positive for Intact, positive for Obsessional Thoughts and positive for Perseveration Depressive Symptoms: Increased Anxiety, Changes in Appetite (Alternates between poor appetite and binge eating.), Loss of Int. in Activity, Unhappiness, Increased Fatigue, Thoughts of /Suicide and Loss of Energy Judgement: Fair Diagnostics Vital Signs (24Hr): BMI result Body Mass Index 40.7 Assessment & Plan Assessment & Plan (1) Major depressive disorder, recurrent severe without psychotic features: Status: Acute Code(s): F33.2 - Major depressive disorder, recurrent severe without psychotic features Assessment and Plan: Overall less depressed, continues anxious. Utilizing PRNs with positive affect. Reviewed medications in detail. No concerns. Today was 1st day of increased dose of lamotrigine. Now taking 50 mg x 14 days. Trying to use learned coping skills, finding them helpful in stopping anxiety from escalating, as well as stopping or lowering OCD type thoughts. No SI reported, no safety concerns at this time. Finding program helpful. (2) Generalized anxiety disorder: Status: Acute Code(s): F41.1 - Generalized anxiety disorder (3) Obsessive-compulsive personality disorder: Status: Acute Code(s): F60.5 - Obsessive-compulsive personality disorder Plan 1. Continue with current [facility] plan of care. 2. Continue with medications as currently prescribed. 3. Follow-up as per protocol. Patient educated on: diagnosis, medication risk/benefits and therapeutic strategies Informed Consent: understands Reason for contiued partial hosp. stay Substantial Risk for: inability to function and rapid decompensation Certification I certify that partial hospital treatment is medically necessary due to the symptoms and problems resulting from the patient's mental illness and the failure to treat the patient at the partial hospital level of care would likely result in the patient requiring inpatient psychiatric care which could not be prevented at a less intensive level of care. Total time managing care of this patient today _20___ minutes. Discharge Plan Discharge Attending provider: Jose Enrique Orr Medications: No Action clonidine HCl 0.1 mg tablet 0.1 mg PO BID PRN (Reason: Anxiety) olanzapine 5 mg Tablet 5 mg PO BID lamotrigine 25 mg Tablet 25 mg PO BEDTIME omeprazole 20 mg Capsule,Delayed Release(Dr/Ec) 20 mg PO DAILY levonorgestrel-ethinyl estrad [Vienva] 0.1-20 mg-mcg tablet 1 tab PO DAILY hydroxyzine HCl 25 mg tablet 1 tab PO DAILY PRN (Reason: anxiety) fluoxetine 20 mg capsule 60 cap PO DAILY Rx Instructions: Take 3 tabs daily. Confirmed with [facility]. lorazepam 0.5 mg tablet 1 tab PO DAILY PRN (Reason: anxiety) Rx Instructions: Take up to 10 x a month. Stand Alone Forms: Patient Portal Discharge page Patient Education: Depression (DC)
== END 2023-02-07 23:59 | disposition home or self-care (01) ==
LOC: HO.PHPA 11:45
PROVIDERS: Visit Provider Psychiatry & Neurology Psychiatry
DX: F33.2 Major depressive disorder, recurrent severe without psychotic features (principal); F41.1 Generalized anxiety disorder; F60.5 Obsessive-compulsive personality disorder; Z79.899 Other long term (current) drug therapy
CPT/HCPCS: 90791; 90853